=== PATIENT | male | born 1965 | race Hispanic/Latino ===

== ENCOUNTER 2019-06-13 18:50 | Emergency (ER) | payer SELFPAY ==
[2019-06-13] MEDS ORDERED: ASPIRIN 325 MG TABLET ONE (19:22)
[2019-06-13 19:26] LABS: BASOPHILS % (AUTO) 0.4 % (0.0-5.0); EOSINOPHILS % (AUTO) 1.2 % (0.0-8.0); HEMATOCRIT 40.1 % (42-54); LYMPHOCYTES % (AUTO) 19.7 % (21.0-51.0); MEAN CORPUSCULAR HEMOGLOBIN 27.7 pg (27.0-33.0); MEAN CORPUSCULAR HGB CONC 32.7 g/dL (32.0-36.0); MEAN CORPUSCULAR VOLUME 84.8 fL (79-99); NEUTROPHILS % (AUTO) 67.4 % (40.0-77.0); PLATELET COUNT (AUTO) 238 K/uL (130-400); RED BLOOD CELL COUNT(AUTO) 4.73 MIL/uL (4.50-6.20); RED CELL DISTRIBUTION WIDTH 12.3 % (11.0-15.5); WHITE BLOOD COUNT (AUTO) 6.8 K/uL (4.8-10.8)
[2019-06-13] MEDS ORDERED: IPRATROPIUM/ALBUTEROL SULFATE 3 ML SOLUTION IH ONE (19:26)
[2019-06-13 19:44] LABS: ALBUMIN 3.5 g/dL (3.5-5.0); BILIRUBIN,TOTAL 0.2 mg/dL (0.2-1.0)
[2019-06-13 19:53] LABS: INR 0.99 (0.85-1.15); PROTHROMBIN TIME 10.4 SEC (9.6-11.6)
[2019-06-13 20:05] LABS: B-TYPE NATRIURETIC PEPTIDE 5 pg/mL (0-100)
[2019-06-13] MEDS ORDERED: BENZONATATE 100 MG CAPSULE PO ONE (20:15)
[2019-06-13] MEDS ORDERED: GUAIFENESIN-CODEINE 5 ML SYRUP ONE (20:15)
[2019-06-13] MEDS ORDERED: METHYLPREDNISOLONE SOD SUCC 40MG/ML 1ML ONE (20:15)
[2019-06-13] MEDS ORDERED: SODIUM CHLORIDE 0.9% 1000ML 1,000 ML IV ONE (20:18)
[2019-06-13] MEDS ORDERED: ALBUTEROL SULFATE 0.083% 2.5 MG/3 ML INH IH ONE (21:33)
== END 2019-06-13 22:37 | disposition home or self-care (01) ==
LOC: EDH 18:50
DX: J20.9 Acute bronchitis, unspecified (principal); Z87.891 Personal history of nicotine dependence
CPT/HCPCS: 36415; 71045; 80053; 82550; 83880; 84484 ×2; 85025; 85378; 85610; 85730; 87804 ×2; 93005 ×2; 94640 ×2; 96374; 99285; J2920; J7030